=== PATIENT | male | born 1995 | race Caucasian/White ===

== ENCOUNTER 2021-06-09 12:54 | Emergency (ER) | payer OTHER ==
[~2021-06-09 12:54] MED LIST: PHENERGAN 25 MG25 M1 PO; ZANTAC300 MG PO; ZOFRAN ODT 4 MG4 MG SL
[2021-06-09 13:49] LABS: HEMOGLOBIN 15.5 gm/dl (14.0-17.5); RED BLOOD COUNT 5.33 M/UL (4.20-5.50); WHITE BLOOD COUNT 6.4 K/UL (4.5-11.0)
[2021-06-09 14:09] LABS: BUN/CREATININE RATIO 14 (0-10)
== END 2021-06-09 15:10 | disposition home or self-care (01) ==
LOC: ER1 12:54
PROVIDERS: Emergency Medicine
DX: R07.89 Other chest pain (principal); R07.2 Precordial pain
CPT/HCPCS: 71045; 80053; 82550; 82553; 84484; 85025; 93005; 99285